=== PATIENT | female | born 1945 | race Caucasian/White ===

== ENCOUNTER 2019-02-26 18:27 | Emergency (ER) | payer OTHER ==
[~2019-02-26] VITALS: Ht 154.9 cm; Wt 58.1 kg
--- NOTE | 2019-02-26 18:38 | NUR ---
bbra 88 from [facility] for low BS, found on chair. d10 given in field, BS 72. ALERT AND ORIENTED UPON ARRIVAL. PT IS AMB, VSS, RR EVEN AND UNLABORED ON RA. DENIES DIZZINESS, WEAKNESS, N/V. SON AT BEDSIDE. READY FOR EVAL.
[2019-02-26] MEDS ORDERED: IPRA12.9 IH (19:16)
[2019-02-26] MEDS ORDERED: TRAM50TA2 PO (19:16)
[2019-02-26] MEDS ORDERED: SODI100037 GT (19:16)
[2019-02-26] MEDS ORDERED: DOCU-141 PO (19:16)
[2019-02-26] MEDS ORDERED: BUPR100T6 PO (19:16)
[2019-02-26] MEDS ORDERED: INSU100V7 SQ (19:16)
[2019-02-26] MEDS ORDERED: INSU100I14 SQ (19:16)
[2019-02-26] MEDS ORDERED: ATOR80TA PO (19:16)
[2019-02-26] MEDS ORDERED: ONDA4TAB5 PO (19:16)
[2019-02-26] MEDS ORDERED: FEXO180T94 PO (19:16)
[2019-02-26] MEDS ORDERED: SENN-175 PO (19:16)
[2019-02-26] MEDS ORDERED: OMEP20TA5 PO (19:16)
[2019-02-26] MEDS ORDERED: METO-295 PO (19:16)
[2019-02-26] MEDS ORDERED: FERR325T23 PO (19:16)
[2019-02-26] MEDS ORDERED: CALC1TAB2 PO (19:16)
[2019-02-26] MEDS ORDERED: SERT50TA PO (19:16)
[2019-02-26] MEDS ORDERED: CHOL200026 PO (19:16)
[2019-02-26] MEDS ORDERED: GABA-534 PO (19:16)
[2019-02-26] MEDS ORDERED: INSU100I28 SQ (19:16)
--- NOTE | 2019-02-26 20:19 | NUR ---
Patient is resting comfortably in bed with eyes closed. Easily aroused. VSS
--- NOTE | 2019-02-26 20:49 | NUR ---
CALLED [facility], PRESENTED PT, AWAITING CALL BACK FROM [facility]
--- NOTE | 2019-02-26 21:20 | NUR ---
IV removed. Catheter intact and site benign. Pressure and 4x4 applied to site. No bleeding noted.Patient discharged to home in stable condition. Written and verbal after care instructions given. Patient verbalizes understanding of instruction.
[2019-02-26 21:41] VITALS: BP 148/76
== END 2019-02-26 21:00 | disposition home or self-care (01) ==
LOC: ER 18:27
DX: E11.649 Type 2 diabetes mellitus with hypoglycemia without coma (principal); E78.00 Pure hypercholesterolemia, unspecified; I10 Essential (primary) hypertension; K21.9 Gastro-esophageal reflux disease without esophagitis; Z88.2 Allergy status to sulfonamides; Z88.5 Allergy status to narcotic agent; Z79.4 Long term (current) use of insulin
CPT/HCPCS: 82962-TC